=== PATIENT | male | born 1990 | race Caucasian/White ===

== ENCOUNTER 2017-12-13 10:05 | Emergency (ER) | payer MEDICAID, OTHER ==
[~2017-12-13] VITALS: Ht 172.7 cm; Wt 88.7 kg
[2017-12-13] MEDS ORDERED: KETOROLAC 30 MG/1 ML IM ONE (10:30)
[2017-12-13] MEDS ORDERED: HYDROcodone/APAP 5/325 TABLET PO ONE (10:30)
[2017-12-13] MEDS ORDERED: KETOROLAC 30 MG/1 ML ONE (10:36)
[2017-12-13] MEDS ORDERED: HYDROcodone/APAP 5/325 TABLET ONE (10:37)
[2017-12-13 10:45] LABS: BASOPHILS # (AUTO) 0.06 x10^3/uL (0-0.1); BASOPHILS % (AUTO) 1 % (0-1); EOSINOPHILS # (AUTO) 0.19 x10^3/uL (0-0.4); EOSINOPHILS % (AUTO) 2 % (1-7); LYMPHOCYTES # (AUTO) 2.43 x10^3/uL (1-3.4); LYMPHOCYTES % (AUTO) 28 % (22-44); MD NO; MEAN CORPUSCULAR HEMOGLOBIN 30.1 pg (27.5-34.5); MEAN CORPUSCULAR HGB CONC 33.8 g/dL (33.2-36.2); MEAN CORPUSCULAR VOLUME 88.9 fL (81-97); MEAN PLATELET VOLUME 9.5 fL (7.4-10.4); MONOCYTES # (AUTO) 0.45 x10^3/uL (0.2-0.8); MONOCYTES % (AUTO) 5 % (2-9); NEUTROPHILS # (AUTO) 5.62 x10^3/uL (1.8-6.8); NEUTROPHILS % (AUTO) 64 % (42-75); PLATELET COUNT 252 x10^3/uL (130-400); RED BLOOD COUNT 5.56 x10^6/uL (4.38-5.82); RED CELL DISTRIBUTION WIDTH 12.9 % (9.4-14.8)
[2017-12-13] MEDS ORDERED: IBUPROFEN 800 MG TABLET ONE (10:54)
[2017-12-13 10:58] LABS: ALBUMIN 4.4 g/dL (3.4-5.0); ANION GAP 7 mmol/L (5-15); CALCIUM 8.7 mg/dL (8.5-10.1); CHLORIDE 111 mmol/L (98-107); CREATININE 1.05 mg/dL (0.7-1.3); HIGH-SENSITIVITY CRP 0.13 mg/dL (0.02-0.30)
[2017-12-13] MEDS ORDERED: IBUPROFEN 200 MG TABLET PO ONE (11:00)
[2017-12-13 11:01] LABS: TROPONIN I < 0.015 ng/mL (0.000-0.045)
[2017-12-13 11:47] VITALS: BP 114/80
== END 2017-12-13 12:21 | disposition home or self-care (01) ==
LOC: ED 12:00
DX: R07.89 Other chest pain (principal); K21.9 Gastro-esophageal reflux disease without esophagitis
CPT/HCPCS: 36415; 71046; 80048; 82040; 84484; 85025; 86141; 93005; 99285